=== PATIENT | male | born 1975 | race Caucasian/White ===

== ENCOUNTER 2022-08-30 08:03 | Outpatient (CLI) | payer OTHER, SELFPAY ==
[2022-08-30 10:10] LABS: Kit Draw Collected
== END 2022-08-30 08:04 | disposition home or self-care (01) ==
LOC: ANHGOSHLAB 08:05
PROVIDERS: PCP Internal Medicine; Visit Provider Clinical Nurse Specialist
DX: R03.0 Elevated blood-pressure reading, without diagnosis of hypertension (principal); Z13.220 Encounter for screening for lipoid disorders; Z13.228 Encounter for screening for other metabolic disorders
CPT/HCPCS: 36415

== ENCOUNTER 2022-12-23 00:57 | Day surgery (SDC) | payer OTHER, SELFPAY ==
[2022-12-15 10:40] VITALS: BMI 29.5
[2022-12-23 08:05] VITALS: BP 126/83; PULSE 56; RESP 20; TEMP 36.1; O2SAT 100
[2022-12-23] MEDS: LACTATED RINGERS 1,000 ML 150 ML IV CONT (08:18)
--- NOTE | 2022-12-23 08:32 | WPDANESEPPF ---
Anes - Initial Pre Proc Eval Procedure: Operation Date: 12/23/22 09:00 Proposed Procedures p Screening Colonoscopy - Luc Hoang MD Date/Time: 12/23/22 08:32 Surgeon: Luc Hoang MD Pre Op Diagnosis: neoplasm screening Patient Data Age: 46 Gender: M Height: 1.88 m Weight: 105.6 kg Last Vital Signs Temp 96.9 F L 12/23/22 08:05 Pulse 56 L 12/23/22 08:05 Resp 20 12/23/22 08:05 BP 126/83 12/23/22 08:05 Pulse Ox 100 12/23/22 08:05 O2 Del Method Room Air 12/23/22 08:05 Allergies Allergy/AdvReac Type Severity Reaction Status Date / Time No Known Allergies Allergy Verified 12/23/22 08:19 Home Medications Medication Instructions Recorded Confirmed Type Men's Daily Multivit-Mineral 1 pkg PO DAILY 12/15/22 12/23/22 History Pre-Work Out Supplement 1 dose PO DAILY 12/15/22 12/23/22 History Patient hx anesthesia problems: none Family hx anesthesia problems: none Results Review: All pre-operative results and documents have been reviewed as part of the pre-operative evaluation. FOR[facility], [facility] Past Medical History Medical History (System 09/07/22 @ 08:57 by Olga López) Allergies Apnea Arthritis Tears of meniscus and ACL of left knee Tinnitus Family History Family History (System 09/07/22 @ 08:57 by Olga López) Mother Hypertension Mother Heart disease Sibling Depression Cancer Social History Social History (System 09/07/22 @ 08:57 by Olga López) Smoking status: Never smoker Alcohol intake: current Drinks per week: 3 Alcohol use details: DRINKS Substance use: never Substance use type: does not use Lack of Transportation: No Lack of Food: Never True Current Housing: I Have Housing Concerned About Future Housing: No Difficulty Paying Gas/Electric Bills: No Difficulty Paying for Meds: No Currently Unemployed: No Education: Master's Degree or Higher Difficulty w/ Childcare or Family Care: No Living arrangements: with family Spiritual care concerns: No Anes - Eval Final PreProcedure Day of Procedure 12/23/22 08:32 Patient weight: normal Heart: regular rate and rhythm Lungs: clear to auscultation Airway: Mallampati scale class II Neurological: alert and oriented Last oral intake: >/= 8 hours ASA classification: II Emergent: no Anesthetic plan: proceed Anesthesia type and monitoring: general GIVS and standard monitoring Results Review: All pre-operative results and documents have been reviewed as part of the pre-operative evaluation. Informed Consent: The patient's anesthetic plan and its attendant risks and benefits were discussed with the patient/family/POA. Questions were solicited and answers provided to the satisfaction of the patient/family/POA.
--- NOTE | 2022-12-23 08:32 | PM.HPGS ---
History of Present Illness History of Present Illness Consent: Risks, benefits, and alternatives have been discussed and questions answered. Patient agrees to proceed with procedure. Chief complaint: neoplasm screening Narrative: Edd Winters is a 46 year old male here for first screening colonoscopy Review of Systems Constitutional: Constitutional: Denies headache(s) and Denies weakness Eyes: Eyes: Denies blurry vision ENT: Reports Normal hearing present, Denies headache(s) and Denies neck pain Cardiovascular: Cardiovascular: Denies chest pain and Denies dyspnea Respiratory: Respiratory: Denies dyspnea Gastrointestinal: Gastrointestinal: Reports no additional gastrointestinal complaints Genitourinary: Genitourinary: Denies dysuria Musculoskeletal: Musculoskeletal: Denies neck pain Integumentary/Breasts: Skin/Breast: Denies dry skin Neurologic: Reports Normal hearing present, Denies headache(s) and Denies weakness Psychiatric: Psychiatric: Denies anxiety Endocrine: Endocrine: Denies change in body appearance Hematologic/Lymphatic: Hematologic/Lymphatic: Denies easy bleeding Allergic/Immunologic: Allergic/Immunologic: Denies urticaria PMFSH Past Medical History Medical History (System 09/07/22 @ 08:57 by Olga López) Allergies Apnea Arthritis Tears of meniscus and ACL of left knee Tinnitus Family History Family History (System 09/07/22 @ 08:57 by Olga López) Mother Hypertension Mother Heart disease Sibling Depression Cancer Social History Social History (System 09/07/22 @ 08:57 by Olga López) Smoking status: Never smoker Alcohol intake: current Drinks per week: 3 Alcohol use details: DRINKS Substance use: never Substance use type: does not use Lack of Transportation: No Lack of Food: Never True Current Housing: I Have Housing Concerned About Future Housing: No Difficulty Paying Gas/Electric Bills: No Difficulty Paying for Meds: No Currently Unemployed: No Education: Master's Degree or Higher Difficulty w/ Childcare or Family Care: No Living arrangements: with family Spiritual care concerns: No Meds Home Medications and Allergies Home Medications Medication Instructions Recorded Confirmed Type Men's Daily Multivit-Mineral 1 pkg PO DAILY 12/15/22 12/23/22 History Pre-Work Out Supplement 1 dose PO DAILY 12/15/22 12/23/22 History Allergies Allergy/AdvReac Type Severity Reaction Status Date / Time No Known Allergies Allergy Verified 12/23/22 08:19 Vital Signs Vital Signs - 24 hr 12/23/22 08:05 Temperature 96.9 F L Pulse Rate 56 L Respiratory Rate 20 Blood Pressure 126/83 Pulse Oximetry 100 Oxygen Delivery Room Air Exam Const: General: comfortable and no acute distress HENMT: Face/Nose/Sinus: Normal nares present Eyes: General: appearance normal, both eyes and all related structures Neck: Neck: no JVD Resp: Auscultation: clear to auscultation bilaterally Cardio: Rate: regular rate Rhythm: regular rhythm GI: Inspection: non-distended GI Palp: Yes Soft to palpation Skin: General skin exam: normal color Neuro: General: gait normal Speech: normal speech Extrem: General: normal to inspection Psych: Mental Status: mental status grossly normal Assessment and Plan Assessment and plan (1) Screening for colon cancer: Code(s): Z12.11 - Encounter for screening for malignant neoplasm of colon Status: Acute Assessment and Plan: colonoscopy
[2022-12-23 08:49] VITALS: BP 133/74; PULSE 57; RESP 18; O2SAT 97
[2022-12-23 08:59] VITALS: BP 117/83; PULSE 53; RESP 18; O2SAT 100
[2022-12-23 09:09] VITALS: BP 114/76; PULSE 59; RESP 20; O2SAT 100
== END 2022-12-23 09:12 | disposition home or self-care (01) ==
PROVIDERS: PCP Internal Medicine; Visit Provider Internal Medicine Gastroenterology
PROC: 0DJD8ZZ Inspection of Lower Intestinal Tract, Via Natural or Artificial Opening Endoscopic (ICD-10-PCS; CPT 45378; principal; 2022-12-23 09:00)
DX: Z12.11 Encounter for screening for malignant neoplasm of colon (principal); D12.2 Benign neoplasm of ascending colon; K64.8 Other hemorrhoids
CPT/HCPCS: 45385; 88305; J2704; J7120

== ENCOUNTER → 2023-02-09 09:38 | Outpatient (CLI) | payer OTHER, SELFPAY ==
--- NOTE | ~2023-02-09 | XR_ITS ---
EXAMINATION: XR shoulder LT min 2V DATE: 02/09/2023 10:25 INDICATION: Left shoulder pain TECHNIQUE: AP internally and externally rotated, AP oblique externally rotated and transscapular Y vi ews of the left shoulder were obtained. COMPARISON: None FINDINGS: Normal alignment. No fracture. Glenohumeral joint is normal. Mild acromioclavicular osteoarthritis. Soft tissues are unremarkable. Visualized portion of the right lung are clear. IMPRESSION: Mild left acromioclavicular osteoarthritis. Reviewed, dictated and finalized at location A.
--- NOTE | ~2023-02-09 | XR_ITS ---
EXAMINATION: XR hip LT min 2V DATE: 02/09/2023 10:25 INDICATION: Left hip pain. TECHNIQUE: 2 views of left hip were obtained. COMPARISON: None. FINDINGS: Bone alignment is normal. There is lateral uncovering of the femoral head, consistent with developmental hip dysplasia. There is mild left hip osteoarthritis. IMPRESSION: 1. Mild left hip osteoarthritis. 2. Developmental dysplasia of left hip. Reviewed, dictated and finalized at location A.
--- NOTE | ~2023-02-09 | XR_ITS ---
EXAMINATION: XR lumbar spine 2-3V DATE: 02/09/2023 10:25 INDICATION: Low back pain TECHNIQUE: Anteroposterior and lateral views of the lumbar spine, and cone-down lateral view of the l umbosacral junction were obtained. COMPARISON: None. FINDINGS: Bone alignment is normal. There is no fracture. There is mild loss of intervertebral disc s pace height at L5-S1. The vertebral body heights are maintained. There is mild facet joint osteoarthr itis of the lower lumbar spine. Small degenerative osteophytes project from the anterior endplates of multiple vertebral bodies. Phleboliths are noted in the pelvis. There is a moderate volume of coloni c stool. IMPRESSION: 1. Mild lumbar spondylosis without acute findings. Reviewed, dictated and finalized at location L.
--- NOTE | ~2023-02-09 | XR_ITS ---
EXAMINATION: XR hip RT min 2V DATE: 02/09/2023 10:25 INDICATION: Right hip pain. TECHNIQUE: 2 views of right hip were obtained. COMPARISON: None. FINDINGS: Bone alignment is normal. No fracture. There is moderate right hip osteoarthritis. IMPRESSION: 1. Moderate right hip osteoarthritis. Reviewed, dictated and finalized at location A.
== END ==
PROVIDERS: PCP Internal Medicine; Visit Provider Nurse Practitioner
DX: M19.012 Primary osteoarthritis, left shoulder (principal); M43.06 Spondylolysis, lumbar region; M16.0 Bilateral primary osteoarthritis of hip; Q65.89 Other specified congenital deformities of hip
CPT/HCPCS: 72100; 73030; 73502

== ENCOUNTER 2023-03-28 14:00 | Outpatient (RCR) | payer OTHER, SELFPAY ==
--- NOTE | 2023-02-21 09:20 | OPREHPOC ---
Outpatient Therapy Plan of Care This is a Multidisciplinary Plan of Care that may contain components documented by all disciplines (PT, OT, and ST.) PT Problem 1 PT Problem #1 Knowledge Deficit PT Goal 1 Goal [place] with home mobility exercise program Target Visit 8 PT Problem 2 PT Problem #2 Pain PT Goal 1 Goal Report no pain with ambulatory activity greater than 5 minutes Target Visit 8 PT Goal 2 Goal No pain with active L hip flexion for foot clearance Target Visit 8 PT Problem 3 PT Problem #3 Impaired Strength PT Goal 1 Goal Demonstrate 5/5 L hip flexion strength for foot clearance into and out of bed and car Target Visit 8 PT Problem 4 PT Problem #4 Impaired Range of Motion PT Goal 1 Goal Demonstrate 15+ degrees of hip extension bilaterally for achievement of terminal stance Target Visit 8 PT Goal 2 Goal Demonstrate 40 degrees of kayla hip IR ROM for achievement of closed pack position for gait and squatting activity Target Visit 8 PT Problem 5 PT Problem #5 Impaired Range of Motion PT Goal 1 Goal Achieve 15 degrees of kayla ankle dorsiflexion ROM for terminal stance of gait to prevent pelvic compensatory rotation Target Visit 8
--- NOTE | 2023-02-21 09:20 | PTOPEVAL1 ---
Assessment and note entered by Chaparro Waite, PT Evaluation Information Assessment Status Evaluation Diagnosis Low back pain, Pain in left hip, Pain in Left shoulder Onset 01/24/19 Subjective Information Reports that he has been having pain in kayla hips for a while. Has a history of knee injuries including surgical repair x 2 of L knee. 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 After he walks for a quarter of a mile or more he is getting pain in the hip and quad that occasionally radiates all the way down to his foot . Feels stiff all the time. He has tried rehabbing on his own and exercising but feels he is getting worse. He is not sleeping well at night. He is a stomach sleeper. Squatting and load bearing hurts. Feels he is getting weak even though he is continuing to work out. Reported Pain Level Pain Score 1: Self Report Assessment PT Clinical Summary Patient presenting with signs and symptoms consistent with discogenic back pain. There are indications as well of potential functional acetabular impingement of hip flexors. Patient has notable hip mobility deficits and will benefit from skilled therapy to improve mobility for disassociation of lumbar spine from lower kinematic chain activity. Patient demonstrates good understanding of deficits, and I anticipate excellent compliance. Plan of Care PT Services Indicated Yes Treatment Frequency and 2x/week for 4 weeks Duration These treatments will address the objective and functional deficits as defined above. The patient will be advanced safely and appropriately in order for the patient to progress towards his/her prior level of function. Additional exercises will be introduced and as well as a comprehensive home exercise program upon discharge, if needed, ?to ensure carryover of functional gains achieved in the clinic. This treatment plan has been reviewed and agreement upon by the patient.
--- NOTE | 2023-03-28 16:10 | PTOPDC ---
Assessment and note entered by Chaparro Waite, PT Discharge Information Assessment Status Discharge Diagnosis Low back pain, Pain in left hip, Pain in Left shoulder Onset 01/24/19 Subjective Information Reports that overall he has seen progress. He is still getting pain with walking after he has been sitting for a while. He has been integrating extension based back exercises and feels he is on track. He will be integrating lumbar support pillows into work and driving has well. No concerns at this time with HEP. Reported Pain Level Pain Score 0: Self Report Assessment PT Clinical Summary Patient met all goals for therapy outside of pain goals. Gait and hip mobility improved. We reinforced possibility of discogenic source and patient will continue to address this as part of HEP. Suitable for discharge at this time. Plan of Care PT Services Indicated No
--- NOTE | 2023-03-28 16:16 | OPREHPOC ---
Outpatient Therapy Plan of Care This is a Multidisciplinary Plan of Care that may contain components documented by all disciplines (PT, OT, and ST.) PT Problem 1 PT Problem #1 Knowledge Deficit PT Goal 1 Goal [place] with home mobility exercise program Target Visit 8 Progress Met PT Problem 2 PT Problem #2 Pain PT Goal 1 Goal Report no pain with ambulatory activity greater than 5 minutes Target Visit 8 Progress Partially Met Comment Improved but still present PT Goal 2 Goal No pain with active L hip flexion for foot clearance Target Visit 8 Progress Met Comment No pain with ambulation PT Problem 3 PT Problem #3 Impaired Strength PT Goal 1 Goal Demonstrate 5/5 L hip flexion strength for foot clearance into and out of bed and car Target Visit 8 Progress Met PT Problem 4 PT Problem #4 Impaired Range of Motion PT Goal 1 Goal Demonstrate 15+ degrees of hip extension bilaterally for achievement of terminal stance Target Visit 8 Progress Met PT Goal 2 Goal Demonstrate 40 degrees of kayla hip IR ROM for achievement of closed pack position for gait and squatting activity Target Visit 8 Progress Met PT Problem 5 PT Problem #5 Impaired Range of Motion PT Goal 1 Goal Achieve 15 degrees of kayla ankle dorsiflexion ROM for terminal stance of gait to prevent pelvic compensatory rotation Target Visit 8 Progress Met
== END 2023-03-29 10:07 | disposition home or self-care (01) ==
LOC: ANHGOSHPT 14:00
PROVIDERS: PCP Internal Medicine; Visit Provider Clinical Nurse Specialist
DX: M25.512 Pain in left shoulder (principal); M25.551 Pain in right hip; M25.552 Pain in left hip; M54.50 Low back pain, unspecified; G89.29 Other chronic pain
CPT/HCPCS: 97110; 97140; 97161; 97530

== ENCOUNTER 2024-05-13 07:54 | Outpatient (CLI) | payer OTHER, SELFPAY ==
[2024-05-13 19:58] LABS: Basophils Absolute Auto 0.1 K/mm3 (0.0-0.1); Basophils Percent Auto 1.1 % (0.2-1.2); Eosinophils Absolute Auto 0.1 K/mm3 (0-0.3); Eosinophils Percent Auto 1.6 % (0-4.4); Hematocrit 45.1 % (42.0-52.0); Immature Granulocyte Absolute 0.01 K/mm3 (0.00-0.031); Immature Granulocyte Percent A 0.2 % (0-0.5); Lymphocytes Absolute Auto 1.62 K/mm3 (0.9-3.2); Lymphocytes Percent Auto 28.7 % (18.3-44.2); Mean Corpuscular HGB Conc 33.3 g/dl (32-36); Mean Corpuscular Hemoglobin 30.1 pg (26-34); Mean Corpuscular Volume 90.6 fl (80-100); Mean Platelet Volume 10.7 fl (7.4-10.4); Monocytes Absolute Auto 0.6 K/mm3 (0.1-0.6); Monocytes Percent Auto 10.6 % (2.6-8.5); Neutrophils Absolute Auto 3.3 K/mm3 (1.3-6.7); Neutrophils Percent Auto 57.8 % (45.5-73.1); Platelet Count Result 208 k/mm3 (150-375); Red Blood Count 4.98 M/mm3 (4.6-6.20); Red Cell Distribution Width 12.4 % (11.5-14.5); White Blood Count 5.6 K/mm3 (4.5-10.0)
[2024-05-13 22:58] LABS: Alanine Aminotransferase 38 U/L (6-50); Albumin Level 4.3 g/dL (3.5-5.1); Alkaline Phosphatase 62 U/L (38-126); Anion Gap 7 mmol/L (4-12); Aspartate Amino Transferase 63 U/L (17-59); Bilirubin,Total 0.5 mg/dL (0.2-1.3); Blood Urea Nitrogen 21 mg/dL (9-20); Calcium 9.3 mg/dL (8.4-10.2); Carbon Dioxide 31 mmol/L (22-30); Chloride 102 mmol/L (98-107); Cholesterol 202 mg/dL (0-200); Estimated Glomerular Filt Rate 46; Glucose 86 mg/dL (65-110); HDL Direct 61 mg/dL; Potassium 4.7 mmol/L (3.4-5.0); Sodium 140 mmol/L (137-145); Triglycerides 50 mg/dL (<150)
[2024-05-13 23:09] LABS: LDL Cholesterol Direct 113 mg/dL
[2024-05-13 23:30] LABS: Prostate Specific Antigen 0.8 ng/mL (< OR = 4.0)
== END 2024-05-13 07:55 | disposition home or self-care (01) ==
LOC: ANHGOSHLAB 07:56
PROVIDERS: PCP Internal Medicine; Visit Provider Nurse Practitioner
DX: M25.551 Pain in right hip (principal); M25.552 Pain in left hip; Z13.220 Encounter for screening for lipoid disorders; Z12.5 Encounter for screening for malignant neoplasm of prostate; Z13.228 Encounter for screening for other metabolic disorders
CPT/HCPCS: 36415; 80053; 80061; 84153; 85025; G0103

== ENCOUNTER 2024-05-16 15:28 | Outpatient (CLI) | payer OTHER, SELFPAY ==
[2024-05-16 18:51] LABS: Alanine Aminotransferase 33 U/L (6-50); Albumin Level 4.6 g/dL (3.5-5.1); Alkaline Phosphatase 54 U/L (38-126); Anion Gap 6 mmol/L (4-12); Aspartate Amino Transferase 59 U/L (17-59); Bilirubin,Total 1.3 mg/dL (0.2-1.3); Blood Urea Nitrogen 16 mg/dL (9-20); Calcium 9.8 mg/dL (8.4-10.2); Carbon Dioxide 31 mmol/L (22-30); Chloride 101 mmol/L (98-107); Estimated Glomerular Filt Rate > 60; Glucose 89 mg/dL (65-110); Sodium 138 mmol/L (137-145)
== END 2024-05-16 15:29 | disposition home or self-care (01) ==
LOC: ANHGOSHLAB 15:30
PROVIDERS: PCP Internal Medicine; Visit Provider Nurse Practitioner
DX: R53.83 Other fatigue (principal); R79.89 Other specified abnormal findings of blood chemistry
CPT/HCPCS: 36415; 80053; 84402; 84403

== ENCOUNTER 2024-08-09 08:09 | Outpatient (CLI) | payer OTHER, SELFPAY ==
--- NOTE | ~2024-08-09 | MR_ITS ---
EXAMINATION: MR hip LT wo con, MR hip RT wo con DATE: 08/09/2024 09:17 INDICATION: Bilateral hip pain TECHNIQUE: 1. Magnetic resonance imaging (MRI) of the left hip was performed without intravenous contrast. Seque nces included full-field axial PD-weighted FS FSE. Along the superomedial aspect of the T1-weighted F SE, coronal of the pelvis with PD-weighted FS FSE, T2-weighted FSE and T1-weighted FSE, small field o f view of the left hip with axial PD-weighted FS FSE, sagittal PD-weighted FS FSE, coronal PD-weight ed FS FSE and coronal T2 weighted FSE. Additional radial T1-weighted FGR oriented orthogonal to the acetabular rim were obtained for evaluation of the labrum. 2. MRI of the right hip was performed without intravenous contrast. Sequences included small field of view of the right hip with axial PD-weighted FS FSE, sagittal PD-weighted FS FSE, coronal PD-weight ed FS FSE and coronal T2 weighted FSE. Additional radial T1-weighted FGR oriented orthogonal to the acetabular rim were obtained for evaluation of the labrum. COMPARISON: Radiographs dated 02/09/2023 FINDINGS: Bones/labrum/cartilage: Alignment is normal. No fracture, avascular necrosis or pathologic marrow replacing process. Mild rebekah mbar spondylosis with moderate to severe lower lumbar facet osteoarthritis. Severe osteoarthritis at the right hip with nonuniform joint space narrowing most prominent at the cephalad aspect of the join t space where there is full/near full-thickness cartilage loss with subtle early remodeling of the ar ticular surface of the femoral head. There are scattered foci of additional deep chondral ulceration with small central subchondral osteophytes at the superomedial aspect of the femoral head. There is d iffuse tear of the right acetabular labrum and small marginal osteophytes about the acetabulum and fe moral head. There is moderate osteoarthritis at the contralateral left hip with extensive partial thickness carti shady loss also severe the superolateral aspect the joint space and more focal regions of deep chondra l ulceration. Small central subchondral osteophytes at the superomedial acetabulum and femoral head a nd acetabulum and mild subarticular edema-like signal changes. There is diffuse labral degeneration w hich has a macerated appearance superolaterally where the labrum is thickened with marked diffuse inc reased signal. Small marginal osteophytes about the acetabulum and femoral head. Fluid: Small left and moderate-sized right hip joint effusions. Small bilateral hydroceles. No bursitis or o ther abnormal fluid collections. Soft tissues: Normal and symmetric muscle bulk and signal in the pelvis and visualized proximal thighs. Tendinopath y without discrete tears at the flexor tendons of the bilateral rectus femoris tendons. The bilateral iliopsoas, gluteal and proximal hamstring tendons are normal. Prostatomegaly measuring 4.7 x 3.9 cm. Limited evaluation of visceral organs of the pelvis is otherwise unremarkable. No pathologically en larged pelvic/inguinal lymphadenopathy. IMPRESSION: 1. Severe right and moderate left hip osteoarthritis with bilateral labral tears and moderate-sized r ight and small left hip joint effusions. 2. Tendinopathy without discrete tears at the reflected heads of the bilateral rectus femoris tendons . Reviewed, dictated and finalized at location A. [employer] IMPRESSION: 1. Severe right and moderate left hip osteoarthritis with bilateral labral tear s and moderate-sized right and small left hip joint effusions. 2. Tendinopathy without discrete tears at the reflected heads of the bilateral rectus femoris tendons.
== END 2024-08-09 08:10 | disposition home or self-care (01) ==
LOC: MICIMG 08:09
PROVIDERS: PCP Internal Medicine; Visit Provider Anesthesiology Pain Medicine
DX: M16.0 Bilateral primary osteoarthritis of hip (principal); M25.452 Effusion, left hip; M25.451 Effusion, right hip; S73.191A Other sprain of right hip, initial encounter; S73.192A Other sprain of left hip, initial encounter; M77.8 Other enthesopathies, not elsewhere classified; X58.XXXA Exposure to other specified factors, initial encounter
CPT/HCPCS: 73721